=== PATIENT | male | born 2000 | race Two or more races ===

== ENCOUNTER 2024-03-08 06:52 | Emergency (ER) | payer OTHER ==
[~2024-03-08] VITALS: Ht 172.7 cm; Wt 63.8 kg
[2024-03-08 08:40] VITALS: BP 128/70; PULSE 94; RESP 18; TEMP 98.2; O2SAT 98
[2024-03-08] MEDS: TETANUS-DIPTH-ACEL PERTUSSIS 0.5ML SYR Tdap IM ONE (08:59)
[2024-03-08] MEDS: cefTRIAXone SOD 1,000 MG VL IM ONE (08:59)
== END 2024-03-08 09:14 | disposition home or self-care (01) ==
LOC: ER 06:52
DX: S00.83XA Contusion of other part of head, initial encounter (principal); W18.39XA Other fall on same level, initial encounter; Y93.89 Activity, other specified; Y92.89 Other specified places as the place of occurrence of the external cause; Y99.8 Other external cause status
CPT/HCPCS: 70450; 70486; 90471; 90715; 96372; 99285; J0696